=== PATIENT | female | born 1975 | race Caucasian/White ===

== ENCOUNTER 2019-02-20 14:45 | Emergency (ER) | payer MEDICAID ==
[~2019-02-20] VITALS: Ht 162.6 cm; Wt 95.5 kg
[~2019-02-20 14:45] MED LIST: CIPR500T4 PO; IBUP-1542 PO
[2019-02-20 15:10] VITALS: Ht 162.6 cm; Wt 95.5 kg
[2019-02-20] MEDS ORDERED: KETOROLAC 30 MG INJ IM STA (15:21)
[2019-02-20 16:58] VITALS: BP 158/87; PULSE 85; RESP 18
== END 2019-02-20 16:59 | disposition home or self-care (01) ==
LOC: FTE 14:45
DX: G44.209 Tension-type headache, unspecified, not intractable (principal); N39.0 Urinary tract infection, site not specified; E11.9 Type 2 diabetes mellitus without complications; I10 Essential (primary) hypertension
CPT/HCPCS: 81001; 81025; 96372; J1885; Z7502